=== PATIENT | male | born 1940 | race Caucasian/White ===

== ENCOUNTER 2018-11-23 07:38 | Day surgery (SDC) | payer MEDICARE ==
--- NOTE | 2018-11-23 08:00 | PCM.PREANE ---
Preanesthetic Assessment - Anesthesia/Transfusion/Family Hx Anesthesia History: Prior Anesthesia Without Reaction Family History of Anesthesia Reaction: No Transfusion History: No Prior Transfusion(s) - Review of Systems General: No Symptoms Pulmonary: Cough (pt states has a cough with current cold, pt aware to notify during procedure) Cardiovascular: No Symptoms Gastrointestinal: No Symptoms Neurological: No Symptoms Other: Reports: None - Physical Assessment NPO Status Date: 11/23/18 NPO Status Time: 00:05 Pulse: 91 O2 Sat by Pulse Oximetry: 98 Respiratory Rate: 16 Blood Pressure: 153/90 Temperature: 97.1 C ASA Class: 2 Mental Status: Alert & Oriented x3 Airway Class: Mallampati = 1 Dentition: Reports: Normal Dentition Thyro-Mental Finger Breadths: 3 Mouth Opening Finger Breadths: 3 ROM/Head Extension: Full Lungs: Clear to Auscultation, Normal Respiratory Effort Cardiovascular: Regular Rate, Regular Rhythm - Allergies Allergies/Adverse Reactions: Allergies Allergy/AdvReac Type Severity Reaction Status Date / Time No Known Allergies Allergy Verified 11/22/18 13:18 - Acknowledgements Anesthesia Type Planned: MAC Pt an Appropriate Candidate for the Planned Anesthesia: Yes Alternatives and Risks of Anesthesia Discussed w Pt/Guardian: Yes Pt/Guardian Understands and Agrees with Anesthesia Plan: Yes PreAnesthesia Questionnaire HEENT History: Reports: Cataract Cardiovascular History: Reports: Hypertension, 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) Respiratory History: Reports: None Gastrointestinal History: Reports: None Genitourinary History: Reports: Renal Calculus (pt states has stent that was placed for kidney stone 1 mo ago) Musculoskeletal History: Reports: Arthritis Neurological History: Reports: None Endocrine/Metabolic History: Reports: Diabetes, Type II (pt does check BS at home "once in a while"), Hypothyroidism - Past Surgical History HEENT Surgical History: Reports: Tonsillectomy Cardiovascular Surgical History: Reports: Pacer GI Surgical History: Reports: Appendectomy, Cholecystectomy, Colon (resection for CA tumor), Colonoscopy Male Surgical History: Reports: Kidney Stone Extraction - SUBSTANCE USE Smoking Status *Q: Never Smoker - HOME MEDS Home Medications: Home Meds Levothyroxine 200 mcg PO DAILY 11/22/18 [History] Mv-Mn/Lutein/Zeax/Bilber/Hb277 [Macular Health Formula Capsule] 1 tab PO DAILY 11/22/18 [History] Tamsulosin [Flomax] 0.4 mg PO DAILY 11/22/18 [History] amLODIPine Besylate [Norvasc] 5 mg PO DAILY 11/22/18 [History] - CURRENT (IN HOUSE) MEDS Current Meds: Current Medications Brimonidine Tartrate (Alphagan 0.2% Ophth Soln) 0 ml EYELF ASDIRECTED ROMAN Stop: 11/23/18 18:00 Cefuroxime Sodium (Zinacef) 0 mg EYELF ASDIRECTED ROMAN Stop: 11/23/18 18:00 Lidocaine HCl (Xylocaine-Mpf 1%) 0 ml INJECT ASDIRECTED ROMAN Stop: 11/23/18 18:00 Phenylephrine HCl (Lavon-Synephrine 2.5% Ophth Soln) 0 ml EYELF ASDIRECTED ROMAN Stop: 11/23/18 18:00 Pilocarpine HCl (Pilocar 4% Ophth Soln) 0 ml EYELF ASDIRECTED ROMAN Stop: 11/23/18 18:00 Polymyxin/Trimethoprim Sulfate (Polytrim Ophth Soln) 0 ml EYELF ASDIRECTED ROMAN Stop: 11/23/18 18:00 Tetracaine HCl (Tetracaine 0.5% Steri-Unit Nadiya) 0 ml EYELF ASDIRECTED ROMAN Stop: 11/23/18 18:00 Tropicamide (Mydriacyl 1% Ophth Soln) 0 ml EYELF ASDIRECTED ROMAN Stop: 11/23/18 18:00
[2018-11-23] MEDS: Polymyxin B/Trimethoprim 10 ML Bottle EYELF SCH ×5 (08:08→10:45)
[2018-11-23] MEDS: Brimonidine 0.2% Ophth Soln 5 ML Bottle EYELF SCH ×4 (08:13→10:45)
[2018-11-23] MEDS: Phenylephrine 2.5% Ophth Soln 2 ML Bot EYELF SCH ×7 (08:20→10:34)
[2018-11-23] MEDS: Tropicamide 1% Ophth Soln 15 ML Bottle EYELF SCH ×4 (08:26→09:25)
[2018-11-23] MEDS: Tetracaine HCl/PF 0.5% 4 ML Bottle EYELF SCH ×5 (09:35→10:34)
[2018-11-23] MEDS: Lidocaine 1% PF 2 ML SDV INJECT SCH ×2 (10:26→10:34)
[2018-11-23] MEDS: Cefuroxime 10 MG/ML SYRINGE EYELF SCH ×2 (10:34→10:44)
[2018-11-23] MEDS: Pilocarpine 4% Ophth Soln 15 ML Bot EYELF SCH ×2 (10:37→10:45)
--- NOTE | 2018-11-23 10:47 | PCM48HPAN ---
Post Anesthesia Note - EVALUATION WITHIN 48HRS OF ANESTHETIC Vital Signs in Normal Range: Yes Patient Participated in Evaluation: Yes Respiratory Function Stable: Yes Airway Patent: Yes Cardiovascular Function Stable: Yes Hydration Status Stable: Yes Pain Control Satisfactory: Yes Nausea and Vomiting Control Satisfactory: Yes Mental Status Recovered: Yes
== END 2018-11-23 10:56 | disposition home or self-care (01) ==
LOC: JD.SDS 07:38
PROVIDERS: ATTEND Ophthalmology
DX: E11.36 Type 2 diabetes mellitus with diabetic cataract (principal); H25.813 Combined forms of age-related cataract, bilateral; H35.363 Drusen (degenerative) of macula, bilateral; H35.3132 Nonexudative age-related macular degeneration, bilateral, intermediate dry stage; H43.813 Vitreous degeneration, bilateral; H02.831 Dermatochalasis of right upper eyelid; H02.413 Mechanical ptosis of bilateral eyelids; I10 Essential (primary) hypertension; E11.40 Type 2 diabetes mellitus with diabetic neuropathy, unspecified; E03.9 Hypothyroidism, unspecified; Z95.0 Presence of cardiac pacemaker; Z79.899 Other long term (current) drug therapy
CPT/HCPCS: 66984; A9270; C1780; J0697; J2001